=== PATIENT | female | born 1965 | race American Indian/Alaskan Native ===

== ENCOUNTER 2018-08-20 04:19 | Emergency (ER) | payer MEDICAID, MEDICARE ==
[2018-08-20 05:17] LABS: Basophils # (Auto) 0.1 K/mm3 (0.0-0.1); Basophils % (Auto) 0.8 % (0.0-1.8); Eosinophils % (Auto) 0.1 % (0.0-4.3); Hematocrit 44.5 % (30.3-42.9); Hemoglobin 14.4 gm/dl (10.1-14.3); Lymphocytes # (Auto) 1.8 K/mm3 (1.2-5.4); Lymphocytes % (Auto) 22.7 % (13.4-35.0); Mean Corpuscular HGB Conc 32 % (30-34); Mean Corpuscular Hemoglobin 29 pg (28-32); Mean Corpuscular Volume 88 fl (79-97); Monocytes # (Auto) 0.5 K/mm3 (0.0-0.8); Monocytes % (Auto) 6.1 % (0.0-7.3); Platelet Count 290 K/mm3 (140-440); Red Blood Count 5.05 M/mm3 (3.65-5.03); Red Cell Distribution Width 14.4 % (13.2-15.2)
[2018-08-20 05:19] LABS: Bilirubin,Urine NEG (Negative); Blood,Urine NEG (Negative); Color,Urine Amber (Yellow); Mucus,Urine 3+ /HPF
[2018-08-20 05:38] LABS: BUN/Creatinine Ratio 18; Blood Urea Nitrogen 14 mg/dL (7-17); Hemolysis Index 17
[2018-08-20 05:46] LABS: Amphetamine Screen,Urine PRESUMPTIVE NEGATIVE; Benzodiazepines Screen,Urine PRESUMPTIVE NEGATIVE; Cannabinoid Screen,Urine PRESUMPTIVE NEGATIVE; Cocaine Screen,Urine PRESUMPTIVE NEGATIVE; Methadone Screen,Urine PRESUMPTIVE NEGATIVE; Opiate Screen,Urine PRESUMPTIVE NEGATIVE
[2018-08-20] MEDS ORDERED: NACL 0.9% 1000 ML 1,000 ML IV ONE (08:40)
[2018-08-20] MEDS ORDERED: GEODON IM ONE ×2 (10:12→11:51)
--- NOTE | 2018-08-20 10:13 | Emergency Department Report ---
ED Psych HPI - General Chief Complaint: Psych Stated Complaint: MEDICAL CLEARANCE Time Seen by Provider: 08/20/18 07:50 Source: patient, family Mode of arrival: Ambulatory Limitations: Other (psychosis) - History of Present Illness Initial Comments: 52 year old female the past medical history of diabetes, hypertension, and schizophrenia presents to the hospital with complains of talking to herself, psychosis, and delusions. She's been noncompliant with her medications 1 week. She went to [facility] was sent to the hospital for medical clearance. Patient does not have any physical complaints. She is requesting ice prior to examination because without the ice she will "". Patient also having various restoration delusions. - Related Data Previous Rx's Medication Instructions Recorded Last Taken Type Acetaminophen [Acetaminophen TAB] 650 mg PO Q6HR PRN #30 tab 04/13/16 1 Day Ago Rx ~04/10/16 LORazepam [Ativan] 1 mg PO 4XD PRN #30 tab 04/13/16 1 Day Ago Rx ~04/10/16 Lactose-Reduced Food [Ensure 237 ml PO TID #1 bottle 04/13/16 1 Day Ago Rx Original] ~04/10/16 Lisinopril [Zestril TAB] 10 mg PO QDAY #30 tab 04/13/16 1 Day Ago Rx ~04/10/16 Mag Hydrox/Aluminum Hyd/Simeth 355 ml PO Q2H PRN #1 bottle 04/13/16 1 Day Ago Rx [Maalox Advanced Suspension] ~04/10/16 cloNIDine [Catapres] 0.1 mg PO BID PRN #30 tab 04/13/16 1 Day Ago Rx ~04/10/16 cloZAPine [Clozapine] 25 mg PO BID #60 04/13/16 1 Day Ago Rx ~04/10/16 diphenhydrAMINE [Benadryl CAP] 50 mg PO QHS PRN #30 tab 04/13/16 1 Day Ago Rx ~04/10/16 traZODone [Desyrel] 100 mg PO QHS #30 tab 04/13/16 1 Day Ago Rx ~04/10/16 Allergies Allergy/AdvReac Type Severity Reaction Status Date / Time No Known Allergies Allergy Verified 08/26/14 03:04 ED Review of Systems ROS: Stated complaint: MEDICAL CLEARANCE Other details as noted in HPI Comment: All other systems reviewed and negative ED Past Medical Hx - Past Medical History Previous Medical History?: Yes Hx Hypertension: Yes Hx Heart Attack/AMI: No Hx Congestive Heart Failure: No Hx Diabetes: Yes Hx Deep Vein Thrombosis: No Hx Psychiatric Treatment: Yes (schzophrenia) Hx Asthma: No Hx COPD: No Hx HIV: No - Surgical History Past Surgical History?: Yes Hx Coronary Stent: No Hx Pacemaker: No Hx Internal Defibrillator: No Additional Surgical History: surgery in 1991 after heavy menstrual bleed - Social History Smoking Status: Never Smoker Substance Use Type: None - Medications Home Medications: Home Medications Medication Instructions Recorded Confirmed Last Taken Type Acetaminophen [Acetaminophen TAB] 650 mg PO Q6HR PRN #30 tab 04/13/16 04/11/16 1 Day Ago Rx ~04/10/16 LORazepam [Ativan] 1 mg PO 4XD PRN #30 tab 04/13/16 04/11/16 1 Day Ago Rx ~04/10/16 Lactose-Reduced Food [Ensure 237 ml PO TID #1 bottle 04/13/16 04/11/16 1 Day Ago Rx Original] ~04/10/16 Lisinopril [Zestril TAB] 10 mg PO QDAY #30 tab 04/13/16 04/11/16 1 Day Ago Rx ~04/10/16 Mag Hydrox/Aluminum Hyd/Simeth 355 ml PO Q2H PRN #1 bottle 04/13/16 04/11/16 1 Day Ago Rx [Maalox Advanced Suspension] ~04/10/16 cloNIDine [Catapres] 0.1 mg PO BID PRN #30 tab 04/13/16 04/11/16 1 Day Ago Rx ~04/10/16 cloZAPine [Clozapine] 25 mg PO BID #60 04/13/16 04/11/16 1 Day Ago Rx ~04/10/16 diphenhydrAMINE [Benadryl CAP] 50 mg PO QHS PRN #30 tab 04/13/16 04/11/16 1 Day Ago Rx ~04/10/16 traZODone [Desyrel] 100 mg PO QHS #30 tab 04/13/16 04/11/16 1 Day Ago Rx ~04/10/16 ED Physical Exam - General Limitations: No Limitations - Other Other exam information: General: No limitations, patient is alert in no acute distress Head exam: Atraumatic, normocephalic Eyes exam: Normal appearance, pupils equal reactive to light, extraocular movements intact ENT: Moist mucous membrane Neck exam: Normal inspection, full range of motion, no meningismus nontender Respiratory exam: Clear to auscultation bilateral, no wheezes, rales, crackles Cardiovascular: Normal rate and rhythm, normal heart sounds Abdomen: Soft, nondistended, and nontender, with normal bowel sounds, no rebound, or guarding Extremity: Full range of motion normal inspection no deformity Back: Normal Inspection, full range of motion, no tenderness Neurologic: Alert, oriented to self. Equal hand water fitness instructor and leg strength without gross focal abnormalities. Sensation grossly intact Psychiatric: Paranoid, delusional, psychosis Skin: Warm, dry, intact ED Course Vital Signs 08/20/18 08/20/18 08/20/18 08:00 13:45 14:01 Temperature 99 F Pulse Rate 109 H 98 H 105 H Respiratory 18 Rate Blood Pressure 147/91 114/71 123/91 [Right] O2 Sat by Pulse 96 89 97 Oximetry ED Medical Decision Making - Lab Data Result diagrams: 08/20/18 04:50 08/20/18 04:50 Lab Results 08/20/18 08/20/18 08/20/18 Range/Units 04:50 04:50 04:50 WBC (4.5-11.0) K/mm3 RBC (3.65-5.03) M/mm3 Hgb (10.1-14.3) gm/dl Hct (30.3-42.9) % MCV (79-97) fl MCH (28-32) pg MCHC (30-34) % RDW (13.2-15.2) % Plt Count (140-440) K/mm3 Lymph % (Auto) (13.4-35.0) % [place] % (Auto) (0.0-7.3) % Eos % (Auto) (0.0-4.3) % Baso % (Auto) (0.0-1.8) % Lymph # (1.2-5.4) K/mm3 [place] # (0.0-0.8) K/mm3 Eos # (0.0-0.4) K/mm3 Baso # (0.0-0.1) K/mm3 Seg Neutrophils % (40.0-70.0) % Seg Neutrophils # (1.8-7.7) K/mm3 Sodium 143 (137-145) mmol/L Potassium 4.1 (3.6-5.0) mmol/L Chloride 103.2 (98-107) mmol/L Carbon Dioxide 23 (22-30) mmol/L Anion Gap 21 mmol/L BUN 14 (7-17) mg/dL Creatinine 0.8 (0.7-1.2) mg/dL Estimated GFR > 60 ml/min BUN/Creatinine Ratio 18 % Glucose 160 H (65-100) mg/dL Calcium 10.0 (8.4-10.2) mg/dL Urine Color (Yellow) Urine Turbidity (Clear) Urine pH (5.0-7.0) Ur Specific [place] (1.003-1.030) Urine Protein (Negative) mg/dL Urine Glucose (UA) (Negative) mg/dL Urine Ketones (Negative) mg/dL Urine Blood (Negative) Urine Nitrite (Negative) Urine Bilirubin (Negative) Urine Urobilinogen (<2.0) mg/dL Ur Leukocyte Esterase (Negative) Urine WBC (Auto) (0.0-6.0) /HPF Urine RBC (Auto) (0.0-6.0) /HPF U Epithel Cells (Auto) (0-13.0) /HPF Urine Mucus /HPF Salicylates < 0.3 L (2.8-20.0) mg/dL Urine Opiates Screen Urine Methadone Screen Acetaminophen < 5.0 L (10.0-30.0) ug/mL Ur Barbiturates Screen Ur Phencyclidine Scrn Ur Amphetamines Screen U Benzodiazepines Scrn Urine Cocaine Screen U Marijuana (THC) Screen Drugs of Abuse Note Plasma/Serum Alcohol (0-0.07) % 08/20/18 08/20/18 08/20/18 Range/Units 04:50 04:50 04:57 WBC 7.7 (4.5-11.0) K/mm3 RBC 5.05 H (3.65-5.03) M/mm3 Hgb 14.4 H (10.1-14.3) gm/dl Hct 44.5 H (30.3-42.9) % MCV 88 (79-97) fl MCH 29 (28-32) pg MCHC 32 (30-34) % RDW 14.4 (13.2-15.2) % Plt Count 290 (140-440) K/mm3 Lymph % (Auto) 22.7 (13.4-35.0) % [place] % (Auto) 6.1 (0.0-7.3) % Eos % (Auto) 0.1 (0.0-4.3) % Baso % (Auto) 0.8 (0.0-1.8) % Lymph # 1.8 (1.2-5.4) K/mm3 [place] # 0.5 (0.0-0.8) K/mm3 Eos # 0.0 (0.0-0.4) K/mm3 Baso # 0.1 (0.0-0.1) K/mm3 Seg Neutrophils % 70.3 H (40.0-70.0) % Seg Neutrophils # 5.4 (1.8-7.7) K/mm3 Sodium (137-145) mmol/L Potassium (3.6-5.0) mmol/L Chloride (98-107) mmol/L Carbon Dioxide (22-30) mmol/L Anion Gap mmol/L BUN (7-17) mg/dL Creatinine (0.7-1.2) mg/dL Estimated GFR ml/min BUN/Creatinine Ratio % Glucose (65-100) mg/dL Calcium (8.4-10.2) mg/dL Urine Color Doris (Yellow) Urine Turbidity Slightly-cloudy (Clear) Urine pH 5.0 (5.0-7.0) Ur Specific [place] 1.029 (1.003-1.030) Urine Protein 100 mg/dl (Negative) mg/dL Urine Glucose (UA) Neg (Negative) mg/dL Urine Ketones 20 (Negative) mg/dL Urine Blood Neg (Negative) Urine Nitrite Neg (Negative) Urine Bilirubin Neg (Negative) Urine Urobilinogen 2.0 (<2.0) mg/dL Ur Leukocyte Esterase Neg (Negative) Urine WBC (Auto) 3.0 (0.0-6.0) /HPF Urine RBC (Auto) 5.0 (0.0-6.0) /HPF U Epithel Cells (Auto) < 1.0 (0-13.0) /HPF Urine Mucus 3+ /HPF Salicylates (2.8-20.0) mg/dL Urine Opiates Screen Urine Methadone Screen Acetaminophen (10.0-30.0) ug/mL Ur Barbiturates Screen Ur Phencyclidine Scrn Ur Amphetamines Screen U Benzodiazepines Scrn Urine Cocaine Screen U Marijuana (THC) Screen Drugs of Abuse Note Plasma/Serum Alcohol < 0.01 (0-0.07) % 08/20/18 Range/Units 04:57 WBC (4.5-11.0) K/mm3 RBC (3.65-5.03) M/mm3 Hgb (10.1-14.3) gm/dl Hct (30.3-42.9) % MCV (79-97) fl MCH (28-32) pg MCHC (30-34) % RDW (13.2-15.2) % Plt Count (140-440) K/mm3 Lymph % (Auto) (13.4-35.0) % [place] % (Auto) (0.0-7.3) % Eos % (Auto) (0.0-4.3) % Baso % (Auto) (0.0-1.8) % Lymph # (1.2-5.4) K/mm3 [place] # (0.0-0.8) K/mm3 Eos # (0.0-0.4) K/mm3 Baso # (0.0-0.1) K/mm3 Seg Neutrophils % (40.0-70.0) % Seg Neutrophils # (1.8-7.7) K/mm3 Sodium (137-145) mmol/L Potassium (3.6-5.0) mmol/L Chloride (98-107) mmol/L Carbon Dioxide (22-30) mmol/L Anion Gap mmol/L BUN (7-17) mg/dL Creatinine (0.7-1.2) mg/dL Estimated GFR ml/min BUN/Creatinine Ratio % Glucose (65-100) mg/dL Calcium (8.4-10.2) mg/dL Urine Color (Yellow) Urine Turbidity (Clear) Urine pH (5.0-7.0) Ur Specific [place] (1.003-1.030) Urine Protein (Negative) mg/dL Urine Glucose (UA) (Negative) mg/dL Urine Ketones (Negative) mg/dL Urine Blood (Negative) Urine Nitrite (Negative) Urine Bilirubin (Negative) Urine Urobilinogen (<2.0) mg/dL Ur Leukocyte Esterase (Negative) Urine WBC (Auto) (0.0-6.0) /HPF Urine RBC (Auto) (0.0-6.0) /HPF U Epithel Cells (Auto) (0-13.0) /HPF Urine Mucus /HPF Salicylates (2.8-20.0) mg/dL Urine Opiates Screen Presumptive negative Urine Methadone Screen Presumptive negative Acetaminophen (10.0-30.0) ug/mL Ur Barbiturates Screen Presumptive negative Ur Phencyclidine Scrn Presumptive negative Ur Amphetamines Screen Presumptive negative U Benzodiazepines Scrn Presumptive negative Urine Cocaine Screen Presumptive negative U Marijuana (THC) Screen Presumptive negative Drugs of Abuse Note Disclamer Plasma/Serum Alcohol (0-0.07) % - Medical Decision Making During ED stay patient required physical restraints and noted to obtain IV fluids for dehydration. Once medicated and pt received fluids heart rate decreased below 100. Labs are unremarkable. Patient is Medical cleared for psychiatric admission. 1013 and transfer form signed - Differential Diagnosis schizophrenia, encephalopathy, medication noncompliance, psychosis, SI, HI Critical Care Time: No Critical care attestation.: If time is entered above; I have spent that time in minutes in the direct care of this critically ill patient, excluding procedure time. ED Disposition Clinical Impression: Schizophrenia, Psychosis, Paranoid delusion, Medical clearance for psychiatric admission Disposition: DC-01 TO HOME OR SELFCARE Is pt being admited?: No Does the pt Need Aspirin: No Condition: Stable Time of Disposition: 16:51
[2018-08-20] MEDS ORDERED: WATER FOR INJ (PF) ONE (10:27)
[2018-08-20] MEDS ORDERED: BENADRYL IM ONE (11:38)
[2018-08-20] MEDS ORDERED: ATIVAN IM ONE ×2 (11:38→11:52)
[2018-08-20] MEDS ORDERED: NACL 0.9% 1000 ML 1,000 ML ONE (14:47)
[2018-08-20 17:14] VITALS: BP 141/99
== END 2018-08-20 20:25 | disposition home or self-care (01) ==
LOC: ED 04:19
DX: F29 Unspecified psychosis not due to a substance or known physiological condition (principal); F20.9 Schizophrenia, unspecified; F22 Delusional disorders; I10 Essential (primary) hypertension; E11.9 Type 2 diabetes mellitus without complications; Z79.899 Other long term (current) drug therapy
CPT/HCPCS: 36415; 80048; 80307; 81001; 85025; 96372; 99284; G0480; J1200; J2060; J3486; J7030; 80320

== ENCOUNTER 2019-05-06 18:37 | Emergency (ER) | payer MEDICARE, MEDICAID ==
[2019-05-06 18:53] VITALS: BP 131/78
[2019-05-06] MEDS ORDERED: NACL 0.9% 1000 ML 1,000 ML IV ONE (20:12)
[2019-05-06] MEDS ORDERED: ZOFRAN IV ONE (20:12)
--- NOTE | 2019-05-06 20:15 | Emergency Department Report ---
ED Abdominal Pain HPI - General Chief Complaint: Nausea/Vomiting/Diarrhea Stated Complaint: WEAKNESS/VOMITING/DIARRHEA Time Seen by Provider: 05/06/19 20:08 Source: patient, EMS Mode of arrival: Stretcher Limitations: No Limitations - History of Present Illness Initial Comments: Patient is 53 years old female with history of hypertension, diabetes and s chizophrenia. Patient presented to the ER complaining off diffuse, crampy abdominal pain with no radiation. Patient stated that pain associated with nausea, vomiting and watery diarrhea. Patient's symptoms started today. Patient denied any fever or chills. Patient denied any chest pain or shortness of breath. MD Complaint: abdominal pain Location: diffuse Migration to: no migration Quality: cramping - Related Data Home Medications Medication Instructions Recorded Confirmed Last Taken Benztropine [Cogentin] 1 mg PO QDAY 05/06/19 05/06/19 Unknown Ezetimibe [Zetia] 10 mg PO QDAY 05/06/19 05/06/19 Unknown Lisinopril [Zestril TAB] 10 mg PO QDAY 05/06/19 05/06/19 Unknown cloZAPine 100 mg PO BID 05/06/19 05/06/19 Unknown metFORMIN [Glucophage] 500 mg PO QDAY 05/06/19 05/06/19 Unknown traZODone [Desyrel] 100 mg PO QHS 05/06/19 05/06/19 Unknown Allergies Allergy/AdvReac Type Severity Reaction Status Date / Time No Known Allergies Allergy Verified 08/26/14 03:04 ED Review of Systems ROS: Stated complaint: WEAKNESS/VOMITING/DIARRHEA Other details as noted in HPI Comment: All other systems reviewed and negative Constitutional: denies: chills, fever Respiratory: denies: cough, shortness of breath, SOB with exertion, wheezing Cardiovascular: denies: chest pain, palpitations Gastrointestinal: abdominal pain, nausea, vomiting, diarrhea Musculoskeletal: denies: back pain Neurological: weakness (generalized). denies: headache, numbness, paresthesias, confusion, abnormal gait Psychiatric: denies: depression, auditory hallucinations, visual hallucinations, homicidal thoughts, suicidal thoughts ED Past Medical Hx - Past Medical History Previous Medical History?: Yes Hx Hypertension: Yes Hx Heart Attack/AMI: No Hx Congestive Heart Failure: No Hx Diabetes: Yes Hx Deep Vein Thrombosis: No Hx Psychiatric Treatment: Yes (schizophrenia) Hx Asthma: No Hx COPD: No Hx HIV: No - Surgical History Past Surgical History?: Yes Hx Coronary Stent: No Hx Pacemaker: No Hx Internal Defibrillator: No Additional Surgical History: surgery in 1991 after heavy menstrual bleed - Social History Smoking Status: Current Some Day Smoker Substance Use Type: None - Medications Home Medications: Home Medications Medication Instructions Recorded Confirmed Last Taken Type Benztropine [Cogentin] 1 mg PO QDAY 05/06/19 05/06/19 Unknown History Ezetimibe [Zetia] 10 mg PO QDAY 05/06/19 05/06/19 Unknown History Lisinopril [Zestril TAB] 10 mg PO QDAY 05/06/19 05/06/19 Unknown History cloZAPine 100 mg PO BID 05/06/19 05/06/19 Unknown History metFORMIN [Glucophage] 500 mg PO QDAY 05/06/19 05/06/19 Unknown History traZODone [Desyrel] 100 mg PO QHS 05/06/19 05/06/19 Unknown History ED Physical Exam - General Limitations: No Limitations General appearance: alert, in no apparent distress - Head Head exam: Present: atraumatic, normocephalic, normal inspection - ENT ENT exam: Present: mucous membranes dry - Neck Neck exam: Present: normal inspection, full ROM. Absent: tenderness, meningismus, lymphadenopathy, thyromegaly - Respiratory Respiratory exam: Present: normal lung sounds bilaterally - Cardiovascular Cardiovascular Exam: Present: regular rate, normal rhythm, normal heart sounds - GI/Abdominal GI/Abdominal exam: Present: soft, normal bowel sounds. Absent: distended, tenderness, guarding, rebound, rigid, organomegaly, mass, bruit, pulsatile mass, hernia - Extremities Exam Extremities exam: Present: normal inspection, full ROM, normal capillary refill - Back Exam Back exam: Present: normal inspection, full ROM. Absent: CVA tenderness (R), CVA tenderness (L), muscle spasm, paraspinal tenderness, vertebral tenderness - Neurological Exam Neurological exam: Present: alert, oriented X3, CN II-XII intact, normal gait, reflexes normal - Psychiatric Psychiatric exam: Present: normal mood - Skin Skin exam: Present: warm, intact, normal color ED Course Vital Signs 05/06/19 05/06/19 18:44 20:00 Temperature 98.2 F 98.7 F Pulse Rate 91 H 87 Respiratory 20 18 Rate Blood Pressure 131/78 Blood Pressure 131/78 [Right] O2 Sat by Pulse 95 95 Oximetry ED Medical Decision Making - Lab Data Result diagrams: 05/06/19 19:45 05/06/19 19:45 - Medical Decision Making Patient is 53 years old female with history of hypertension, diabetes and schizophrenia. Patient presented to the ER complaining off diffuse, crampy abdominal pain with no radiation. Patient stated that pain associated with nausea, vomiting and watery diarrhea. Patient's symptoms started today. Patient denied any fever or chills. Patient denied any chest pain or shortness of breath. Patient labs reviewed and is unremarkable. Patient is received 1 L of normal saline and Zofran. No nausea or vomiting observed in the ER. Patient stated that her abdominal pain is completely resolved. Patient advised to follow-up with her primary care physician in the next 2-3 days and to return to the ER if symptoms are not improved. Critical care attestation.: If time is entered above; I have spent that time in minutes in the direct care of this critically ill patient, excluding procedure time. ED Disposition Clinical Impression: Abdominal pain, Nausea vomiting and diarrhea Disposition: DC-01 TO HOME OR SELFCARE Is pt being admited?: No Condition: Stable Instructions: Acute Nausea and Vomiting (ED), Abdominal Pain (ED) Referrals: MICK ELLIOTT MD [Primary Care Provider] - 3-5 Days
[2019-05-06 20:18] LABS: Basophils % (Auto) 0.1 % (0.0-1.8); Eosinophils % (Auto) 0.3 % (0.0-4.3); Hemoglobin 12.8 gm/dl (10.1-14.3); Lymphocytes # (Auto) 1.4 K/mm3 (1.2-5.4); Lymphocytes % (Auto) 13.7 % (13.4-35.0); Mean Corpuscular HGB Conc 34 % (30-34); Mean Corpuscular Volume 89 fl (79-97); Monocytes # (Auto) 0.6 K/mm3 (0.0-0.8); Monocytes % (Auto) 5.7 % (0.0-7.3); Platelet Count 229 K/mm3 (140-440); Red Blood Count 4.27 M/mm3 (3.65-5.03); Red Cell Distribution Width 14.8 % (13.2-15.2)
[2019-05-06 20:49] LABS: Alanine Aminotransferase 17 units/L (7-56); Albumin 3.6 g/dL (3.9-5); BUN/Creatinine Ratio 13; Blood Urea Nitrogen 12 mg/dL (7-17); Calcium 9.2 mg/dL (8.4-10.2); Hemolysis Index 7
== END 2019-05-06 22:40 | disposition home or self-care (01) ==
LOC: ED 18:37
DX: R10.84 Generalized abdominal pain (principal); R11.2 Nausea with vomiting, unspecified; R19.7 Diarrhea, unspecified; I10 Essential (primary) hypertension; E11.9 Type 2 diabetes mellitus without complications; F17.200 Nicotine dependence, unspecified, uncomplicated; Z79.899 Other long term (current) drug therapy
CPT/HCPCS: 36415; 80053; 83690; 85025; 96361; 96374; 99284; G0480; J2405; J7030; 80320

== ENCOUNTER 2021-11-03 00:11 | Emergency (ER) | payer MEDICARE, MEDICAID ==
[2021-11-03] MEDS ORDERED: levETIRAcetam 1000 MG/NS 0.75% 1,000 MG/100 ML BAG IV ONE (00:54)
[2021-11-03 01:06] LABS: Basophils # (Auto) 0.1 K/mm3 (0.0-0.1); Basophils % (Auto) 0.5 % (0.0-1.8); Lymphocytes # (Auto) 1.5 K/mm3 (1.2-5.4); Lymphocytes % (Auto) 10.6 % (13.4-35.0); Mean Corpuscular HGB Conc 31 % (30-34); Mean Corpuscular Volume 89 fl (79-97); Monocytes # (Auto) 0.7 K/mm3 (0.0-0.8); Monocytes % (Auto) 5.2 % (0.0-7.3); Platelet Count 276 K/mm3 (140-440); Red Blood Count 4.97 M/mm3 (3.65-5.03)
[2021-11-03 01:07] LABS: Hemoglobin 13.5 gm/dl (10.1-14.3)
[2021-11-03 01:08] LABS: Hematocrit 44.1 % (30.3-42.9)
[2021-11-03 01:24] LABS: BUN/Creatinine Ratio 18; Blood Urea Nitrogen 18 mg/dL (7-17); Hemolysis Index 28
[2021-11-03] MEDS ORDERED: SODIUM CHLORIDE 0.9% 1000 ML 1,000 ML IV ONE ×3 (02:18→05:45)
--- NOTE | 2021-11-03 02:26 | Cat Scan Report ---
CT HEAD WITHOUT CONTRAST INDICATION / CLINICAL INFORMATION: Seizure. TECHNIQUE: All CT scans at this location are performed using CT dose reduction for ALARA by means of automated exposure control. COMPARISON: None available. FINDINGS: BRAIN PARENCHYMA: No acute intracranial hemorrhage. No evidence of recent infarct. No mass effect or midline shift. VENTRICULAR SYSTEM/EXTRA-AXIAL SPACES: Ventricles are normal for age. No extra-axial fluid collection . ORBITS: Normal as visualized. SKELETAL SYSTEM/SOFT TISSUES: Normal bones and soft tissues. PARANASAL SINUSES/MASTOID AIR CELLS: No significant abnormality. ADDITIONAL FINDINGS: None. IMPRESSION: 1. No acute intracranial abnormality. Signer Name: Vahid Knight MD Signed: 11/03/2021 2:21 AM Workstation Name: .[id number]
--- NOTE | 2021-11-03 04:12 | XRay Report ---
XR chest 1V ap INDICATION / CLINICAL INFORMATION: seizure. COMPARISON: None available. FINDINGS: Findings in the chest are accentuated by body habitus and phase of inspiration. SUPPORT DEVICES: None. HEART /PULMONARY VASCULATURE: No significant abnormality. LUNGS / PLEURA: Low lung volumes. No significant pulmonary or pleural abnormality. No pneumothorax. ADDITIONAL FINDINGS: No significant additional findings. IMPRESSION: 1. No acute findings. Signer Name: Vahid Knight MD Signed: 11/03/2021 4:07 AM Workstation Name: [id number]
--- NOTE | 2021-11-03 05:36 | Emergency Department Report ---
ED Seizure HPI - General Chief Complaint: Seizure Stated Complaint: SEIZURE Time Seen by Provider: 11/03/21 00:53 Source: EMS Mode of arrival: Stretcher Limitations: Altered Mental Status - History of Present Illness Initial Comments: 56-year-old female the past medical history of schizophrenia currently at [facility] presents to the hospital after having multiple seizures. Upon arrival patient is drowsy and speaking incomprehensible words when commu nicating. She periodically will extend both her arms up in the air and drop them back down. As per triage note patient had multiple seizures at [facility] and received Ativan 2 mg prior to arrival. Patient apparently does not have any history of seizures she was admitted to [place] [id number] at 23: 17 with admitting diagnosis of psychosis. As per MAR patient has refused her p.o. Haldol and Cogentin orders. She did receive IM Haldol, Benadryl, and IM Ativan for aggression. - Related Data Home Medications Medication Instructions Recorded Confirmed Last Taken Benztropine [Cogentin] 1 mg PO QDAY 05/06/19 05/06/19 Unknown Ezetimibe [Zetia] 10 mg PO QDAY 05/06/19 05/06/19 Unknown cloZAPine 100 mg PO BID 05/06/19 05/06/19 Unknown lisinopriL [Zestril TAB] 10 mg PO QDAY 05/06/19 05/06/19 Unknown metFORMIN [Glucophage] 500 mg PO QDAY 05/06/19 05/06/19 Unknown traZODone [Desyrel] 100 mg PO QHS 05/06/19 05/06/19 Unknown Previous Rx's Medication Instructions Recorded Last Taken Type Ondansetron [Zofran Odt] 4 mg PO Q8HR PRN #14 tab.rapdis 05/06/19 Unknown Rx levETIRAcetam [Keppra TAB] 500 mg PO BID #60 tablet 11/03/21 Unknown Rx Allergies Allergy/AdvReac Type Severity Reaction Status Date / Time No Known Allergies Allergy Verified 08/26/14 03:04 ED Review of Systems ROS: Stated complaint: SEIZURE Other details as noted in HPI ED Past Medical Hx - Past Medical History Previous Medical History?: No Hx Hypertension: Yes Hx Heart Attack/AMI: No Hx Congestive Heart Failure: No Hx Diabetes: Yes Hx Deep Vein Thrombosis: No Hx Psychiatric Treatment: Yes (schizophrenia) Hx Asthma: No Hx COPD: No Hx HIV: No - Surgical History Past Surgical History?: No Hx Coronary Stent: No Hx Pacemaker: No Hx Internal Defibrillator: No Additional Surgical History: surgery in 1991 after heavy menstrual bleed - Social History Smoking Status: Unknown if ever smoked - Medications Home Medications: Home Medications Medication Instructions Recorded Confirmed Last Taken Type Benztropine [Cogentin] 1 mg PO QDAY 05/06/19 05/06/19 Unknown History Ezetimibe [Zetia] 10 mg PO QDAY 05/06/19 05/06/19 Unknown History Ondansetron [Zofran Odt] 4 mg PO Q8HR PRN #14 tab.rapdis 05/06/19 Unknown Rx cloZAPine 100 mg PO BID 05/06/19 05/06/19 Unknown History lisinopriL [Zestril TAB] 10 mg PO QDAY 05/06/19 05/06/19 Unknown History metFORMIN [Glucophage] 500 mg PO QDAY 05/06/19 05/06/19 Unknown History traZODone [Desyrel] 100 mg PO QHS 05/06/19 05/06/19 Unknown History levETIRAcetam [Keppra TAB] 500 mg PO BID #60 tablet 11/03/21 Unknown Rx ED Physical Exam - General Limitations: Altered Mental Status ED Course Vital Signs 11/03/21 11/03/21 11/03/21 00:13 00:52 00:53 Temperature 97.5 F L Pulse Rate 94 H 97 H Respiratory 18 14 Rate Blood Pressure Blood Pressure 144/84 144/87 [Right] O2 Sat by Pulse 99 97 97 Oximetry 11/03/21 11/03/21 11/03/21 08:16 08:31 08:45 Temperature Pulse Rate 87 85 82 Respiratory 22 19 Rate Blood Pressure 153/77 153/78 Blood Pressure [Right] O2 Sat by Pulse 98 98 Oximetry 11/03/21 11/03/21 11/03/21 09:01 09:15 09:31 Temperature Pulse Rate 85 84 83 Respiratory 18 17 17 Rate Blood Pressure 146/84 155/89 149/86 Blood Pressure [Right] O2 Sat by Pulse 99 97 97 Oximetry 11/03/21 11/03/21 11/03/21 09:45 10:01 10:15 Temperature Pulse Rate 87 69 81 Respiratory 27 H 23 Rate Blood Pressure 158/72 155/61 152/87 Blood Pressure [Right] O2 Sat by Pulse 97 98 98 Oximetry 11/03/21 11/03/21 11/03/21 10:31 10:45 11:01 Temperature Pulse Rate 82 82 81 Respiratory Rate Blood Pressure 153/87 147/95 150/71 Blood Pressure [Right] O2 Sat by Pulse 97 98 97 Oximetry 11/03/21 11/03/21 11:15 11:31 Temperature Pulse Rate 82 82 Respiratory Rate Blood Pressure 150/88 136/97 Blood Pressure [Right] O2 Sat by Pulse 98 98 Oximetry - Reevaluation(s) Reevaluation #1: 11/03/21 5:45 AM Patient drowsy but now arousable and will state her name. She denies any physical complaints at this time. Mental status appears to be improving however, patient requires further observation. Prior to disposition ED Medical Decision Making - Lab Data Result diagrams: 11/03/21 00:53 11/03/21 00:53 Lab Results 11/03/21 11/03/21 11/03/21 Range/Units 00:53 00:53 00:53 WBC 13.9 H (4.5-11.0) K/mm3 RBC 4.97 (3.65-5.03) M/mm3 Hgb 13.5 (10.1-14.3) gm/dl Hct 44.1 H (30.3-42.9) % MCV 89 (79-97) fl MCH 27 L (28-32) pg MCHC 31 (30-34) % RDW 14.0 (13.2-15.2) % Plt Count 276 (140-440) K/mm3 Lymph % (Auto) 10.6 L (13.4-35.0) % Hughes % (Auto) 5.2 (0.0-7.3) % Eos % (Auto) 0.0 (0.0-4.3) % Baso % (Auto) 0.5 (0.0-1.8) % Lymph # (Auto) 1.5 (1.2-5.4) K/mm3 Hughes # (Auto) 0.7 (0.0-0.8) K/mm3 Eos # (Auto) 0.0 (0.0-0.4) K/mm3 Baso # (Auto) 0.1 (0.0-0.1) K/mm3 Seg Neutrophils % 83.7 H (40.0-70.0) % Seg Neutrophils # 11.6 H (1.8-7.7) K/mm3 Sodium 141 (137-145) mmol/L Potassium 4.0 (3.6-5.0) mmol/L Chloride 100.8 (98-107) mmol/L Carbon Dioxide 19 L (22-30) mmol/L Anion Gap 25 mmol/L BUN 18 H (7-17) mg/dL Creatinine 1.0 (0.6-1.2) mg/dL Estimated GFR > 60 ml/min BUN/Creatinine Ratio 18 % Glucose 157 H (65-100) mg/dL Calcium 10.0 (8.4-10.2) mg/dL Magnesium 2.70 H (1.7-2.3) mg/dL Total Creatine Kinase 1382 H (30-135) units/L - EKG Data -: EKG Interpreted by Mn EKG shows normal: sinus rhythm, intervals (QTC 457), QRS complexes (QRS duration normal), ST-T waves (Lateral T wave inversions, LVH with repol) Rate: normal (91) - Radiology Data Radiology results: report reviewed CT HEAD WITHOUT CONTRAST INDICATION / CLINICAL INFORMATION: Seizure. TECHNIQUE: All CT scans at this location are performed using CT dose reduction for ALARA by means of automated exposure control. COMPARISON: None available. FINDINGS: BRAIN PARENCHYMA: No acute intracranial hemorrhage. No evidence of recent infarct. No mass effect or midline shift. VENTRICULAR SYSTEM/EXTRA-AXIAL SPACES: Ventricles are normal for age. No extra- axial fluid collection. ORBITS: Normal as visualized. SKELETAL SYSTEM/SOFT TISSUES: Normal bones and soft tissues. PARANASAL SINUSES/MASTOID AIR CELLS: No significant abnormality. ADDITIONAL FINDINGS: None. IMPRESSION: 1. No acute intracranial abnormality. XR chest 1V ap INDICATION / CLINICAL INFORMATION: seizure. COMPARISON: None available. FINDINGS: Findings in the chest are accentuated by body habitus and phase of inspiration. SUPPORT DEVICES: None. HEART /PULMONARY VASCULATURE: No significant abnormality. LUNGS / PLEURA: Low lung volumes. No significant pulmonary or pleural abnormality. No pneumothorax. ADDITIONAL FINDINGS: No significant additional findings. IMPRESSION: 1. No acute findings. - Medical Decision Making 56-year-old female presents to the hospital with seizures witnessed by psychiatric facility. Patient received Keppra upon ED evaluation. No further seizure activity witnessed in the ED. Patient was initially sedated and altered but mental status is improving with the ED stay. It is unclear if patient has seizures or pseudoseizures since they were unwitnessed here in the ED. Patient will be treated with Keppra 500 mg twice daily with recommendation of outpatient psychiatric follow-up. Mild elevation in CK noted. Patient treated with IV fluids with repeat pending. Patient signed out to oncoming provider Dr. Foster to follow-up CK to ensure it is trending downward and possibly discharge patient back to [facility] if mental status improves further. If patient continues to seize, remains altered, and has elevation in CK he may require admission. UDS and UA also pending CT head and chest x-ray unremarkable Critical Care Time: No Critical care attestation.: If time is entered above; I have spent that time in minutes in the direct care of this critically ill patient, excluding procedure time. ED Disposition Clinical Impression: Rhabdomyolysis, Schizophrenia, Seizure, Altered mental status Disposition: 01 HOME / SELF CARE / HOMELESS Is pt being admited?: No Condition: Stable Instructions: Rhabdomyolysis, Schizophrenia, Seizure, Adult Additional Instructions: Take the medication as prescribed. Follow-up with your doctor or doctor/clinic provided. Return if symptoms worsen as indicated by your discharge instructions. Prescriptions: levETIRAcetam [Keppra TAB] 500 mg PO BID #60 tablet Referrals: JINA MAURICE MD [Staff Physician] - 3-5 Days (Neurology ) TWAN BREAUX MD [Primary Care Provider] - 3-5 Days
[2021-11-03] MEDS ORDERED: ACETAMINOPHEN 325 MG TAB ONE (07:33)
[2021-11-03] MEDS ORDERED: fentaNYL 100 MCG/2 ML INJ ONE (07:34)
[2021-11-03] MEDS ORDERED: GABAPENTIN 300 MG CAP ONE (07:34)
[2021-11-03] MEDS ORDERED: MAGNESIUM OXIDE 400 MG TAB PO ONE (07:35)
[2021-11-03] MEDS ORDERED: MIDAZOLAM 2 MG/2 ML INJ ONE (07:35)
[2021-11-03 08:43] LABS: Bacteria,Urine 1+ /HPF (Negative); Bilirubin,Urine NEG (Negative); Blood,Urine NEG (Negative); Color,Urine Yellow (Yellow); Hyaline Casts,Urine 2 /LPF; Mucus,Urine 2+ /HPF; Urobilinogen,Urine < 2.0 mg/dL (<2.0)
[2021-11-03 08:53] LABS: Amphetamine Screen,Urine Negative; Benzodiazepines Screen,Urine Negative; Cannabinoid Screen,Urine Negative; Cocaine Screen,Urine Negative; Methadone Screen,Urine Negative; Opiate Screen,Urine Negative
--- NOTE | 2021-11-03 09:40 | Emergency Department Report ---
Blank Doc - Documentation Documentation: Labs were noted. Patient was discharged as written by Dr. Norris.
--- NOTE | 2021-11-03 10:38 | Electrocardiograph Report ---
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
[2021-11-03 11:35] VITALS: BP 136/97
== END 2021-11-03 12:16 | disposition home or self-care (01) ==
LOC: ED 00:11
DX: M62.82 Rhabdomyolysis (principal); F20.9 Schizophrenia, unspecified; R56.9 Unspecified convulsions; I10 Essential (primary) hypertension; R41.82 Altered mental status, unspecified
CPT/HCPCS: 36415; 70450; 71045; 80048; 80307; 81001; 82550; 83735; 85025; 93005; 96361; 96374; 99285; J1953; J2250; J3010; J7030; 82962; Q0162